=== PATIENT | male | born 1990 | race Caucasian/White ===

== ENCOUNTER 2020-08-15 17:04 | Emergency (ER) | payer OTHER, SELFPAY ==
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
[2020-08-15 17:19] VITALS: BP 145/77; PULSE 63; RESP 15; TEMP 36.9; O2SAT 98; BMI 26.5
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
[2020-08-15 17:54] VITALS: RESP 15; TEMP 36.9; O2SAT 98
== END 2020-08-15 17:55 | disposition home or self-care (01) ==
PROVIDERS: Emergency Provider Family Medicine
DX: S61.211A Laceration without foreign body of left index finger without damage to nail, initial encounter (principal); X58.XXXA Exposure to other specified factors, initial encounter
CPT/HCPCS: 73130; 99282

== ENCOUNTER 2022-01-23 19:45 | Emergency (ER) | payer OTHER, SELFPAY ==
[2022-01-23 20:01] VITALS: BP 154/82; PULSE 62; RESP 16; TEMP 36.2; O2SAT 98
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
[2022-01-23] MEDS: lidocaine 1% INJ 20 mL MDV (mL) INJECTION (21:41)
== END 2022-01-23 21:42 | disposition home or self-care (01) ==
PROVIDERS: Emergency Provider Emergency Medicine
DX: S61.211A Laceration without foreign body of left index finger without damage to nail, initial encounter (principal); W26.0XXA Contact with knife, initial encounter
CPT/HCPCS: 12002; 99282

== ENCOUNTER 2023-06-06 18:10 | Emergency (ER) | payer OTHER, SELFPAY ==
--- NOTE | 2023-06-06 18:14 | XRR_ITS ---
PROCEDURE INFORMATION: Exam: XR Right Hand Exam date and time: 06/06/2023 7:20 PM Age: 32 years old Clinical indication: Injury or trauma; Other: Playing basketball; Dislocation; Right; Index finger; Injury details: Patient dislocated R 2nd digit TECHNIQUE: Imaging protocol: Radiologic exam of the right hand. Views: 3 or more views. COMPARISON: No relevant prior studies available. FINDINGS: Bones/joints: 2 mm curvilinear avulsion fracture of the volar plate of the 2nd proximal phalanx. Soft tissues: Soft tissue swelling around the 2nd digit. XR/XR hand RT min 3V* [id number] IMPRESSION: Avulsion fracture of the volar plate of the 2nd proximal phalanx.
[2023-06-06 18:17] VITALS: BP 166/98; PULSE 96; RESP 18; TEMP 36.7; O2SAT 95
--- NOTE | 2023-06-06 18:23 | W.ED.EXTPRO ---
HPI - Extremity Problem General: Chief complaint: Extremity Injury, Upper Stated complaint: Right pointer finger injury Time Seen by Provider: 06/06/23 18:20 Source: patient Mode of arrival: ambulatory Limitations: no limitations History of Present Illness: 32-year-old male states he is playing basketball just prior to arrival states that he did hit his right index finger and injured it. He does have a dislocation to that right finger. Rates his pain a 7 out of 10 denies any other injuries. Associated symptoms: Deny chest pain, fever(s) or rash Review of Systems Const: Denies: fever(s), chills, body aches or change in appetite ENMT: Denies: throat pain or dental pain Card: Denies: chest pain Resp: Denies: dyspnea GI: Denies: abdominal pain, nausea, vomiting or diarrhea Musc: Reports: extremity pain; Denies: neck pain or back pain Skin/Breast: Denies: rash Neuro: Denies: headache(s) PFSH ED PFSH: Family History Father Hypertension Heart attack Mother Degenerative disc disease Social History Smoking and tobacco/nicotine status: never used tobacco/nicotine Alcohol intake: current Alcohol intake frequency: few times a month Substance/Drug Use: never Physical Exam Const: COMMON NORMALS: no acute distress, patient oriented x3 and healthy appearing HENMT: COMMON NORMALS: normocephalic and atraumatic HEAD & SCALP: normocephalic and atraumatic Neck/C-Spine: COMMON NORMALS: full ROM and supple Chest: COMMONS NORMALS: normal inspection of the chest Resp: COMMON NORMALS: normal respiratory effort Cardio: COMMON NORMALS: regular rate RATE: regular rate Extremity: OTHER: Dislocation noted to right index finger at the PIP joint Neuro: COMMON NORMALS: patient oriented x3, moves all extremities and no focal motor deficits Psych: COMMON NORMALS: mental status grossly normal, Normal thought process present and cooperative THOUGHT PROCESS: Normal thought process present Skin: COMMON NORMALS: no rashes or lesions noted and no wounds GENERAL SKIN EXAM: no rashes or lesions noted Procedures Orthopedic Joint Reduction Joint #1: Time Out Performed: Yes Side: right Joint Reduction Location: finger Technique used: traction/counter-traction Post-reduction neuro exam: intact Post-reduction vascular: intact Post Reduction X-Ray Obtained: Yes Post Reduction X-Ray Results: reduced Splint Applied: No Patient Tolerated Procedure: well Course Vital Signs: Vital signs: Vital Signs Temperature 98.1 F 06/06/23 18:17 Pulse Rate 96 06/06/23 18:17 Respiratory Rate 18 06/06/23 18:17 Blood Pressure 166/98 06/06/23 18:17 Pulse Oximetry 95 06/06/23 18:17 Oxygen Delivery Me thod Room Air 06/06/23 18:17 MDM - Extremity (Nontraumatic) Medical Decision Making Patient presents here with finger dislocation did reduce his finger pain is much improved x-ray shows no fracture he is stable for discharge follow-up with PCP return if worsening. Medical Records I reviewed the patient's medical records. XR interpretation done by ED provider, pending radiology final review ED provider radiology interpretation(s): xr r hand: no acute fx Discharge Plan Discharge Patient Disposition: Home Clinical Impression: Dislocation of finger Qualifiers: Encounter type: initial encounter Qualified Code(s): S63.259A - Unspecified dislocation of unspecified finger, initial encounter Condition: Stable Prescriptions: No Action metoprolol succinate 25 mg tablet extended release 24 hr 25 mg PO DAILY Discharge Orders: Discharge ED (Routine); Ordered 06/06/23 Ordered By: Claudy Lara Referrals: Flory Hawk APN [Primary Care Provider] - 4-7 days Discharge Diet: Advance as tolerated Discharge Activity: Resume usual activity Patient Instructions: Finger Dislocation (ED) Coding Level of Care Code 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
== END 2023-06-06 19:45 | disposition home or self-care (01) ==
PROVIDERS: Emergency Provider Emergency Medicine; PCP Nurse Practitioner Family
DX: S63.280A Dislocation of proximal interphalangeal joint of right index finger, initial encounter (principal); X58.XXXA Exposure to other specified factors, initial encounter; Y93.67 Activity, basketball
CPT/HCPCS: 73130; 99283

== ENCOUNTER 2024-01-13 14:18 | Outpatient (CLI) | payer OTHER, SELFPAY ==
--- NOTE | 2024-01-13 14:20 | CT_ITS ---
WS: [id number] CT ABDOMEN AND PELVIS NONCONTRAST HISTORY: INCONTINENCE OF FECES TECHNIQUE: Imaging performed through the abdomen and pelvis. Coronal and sagittal reformats are submi tted. All CT scans at [facility] use at least one of these dose optimization techniques: auto mated exposure control; mA and/or kV adjustment per patient size (includes targeted exams where dose is matched to clinical indication); or iterative reconstruction. DLP: 414.73 mGy.cm COMPARISON: None available. Lower thorax: Lung bases are clear. Visualized heart is normal. No hiatal hernia. Liver: Liver is top normal size. No bile duct dilatation is evident. Gallbladder: Normal gallbladder. No pericholecystic fluid or cholelithiasis. No gallbladder wall thic kening. Pancreas: Normal size and attenuation. Normal pancreatic duct. No pancreatitis or mass. Spleen: Normal. Adrenal glands: Normal. No mass. Right kidney: Normal size kidney with no mass or hydronephrosis. Left kidney: Normal size kidney with no mass or hydronephrosis. Aorta: Normal abdominal aorta, no aneurysm or atherosclerosis. No free fluid, intraperitoneal air or significant lymphadenopathy. GI tract: Moderately well distended stomach. No small bowel obstruction. Normal appendix. Short segme nt of narrowing with submucosal edema and mild adjacent inflammation involving the sigmoid colon towa rds the midline. There our small associated diverticula. Mild No adjacent adenopathy. Stricture measu res approximately 3 cm in length. Abdominal wall: Small umbilical hernia contains fat only. Very tiny umbilical hernia. Pelvis: No free fluid or adenopathy. Negative urinary bladder. Osseous structures: Unremarkable. CT/CT abdomen pelvis wo con [id number] IMPRESSION: 1. Short segment, 3 cm, stricture in the proximal sigmoid colon with a few adj acent diverticula. Differential includes postinflammatory stricture or narrowin g associated with acute diverticulitis. Neoplasm needs to be excluded. Consider colonoscopy evaluation. 2. No adenopathy identified. 3. No ascites. 4. Normal appendix.
== END 2024-01-13 14:19 | disposition home or self-care (01) ==
PROVIDERS: PCP Nurse Practitioner Family; Visit Provider Nurse Practitioner Family
DX: K56.690 Other partial intestinal obstruction (principal); R15.9 Full incontinence of feces; R19.7 Diarrhea, unspecified
CPT/HCPCS: 74176